=== PATIENT | female | born 1975 | race Caucasian/White ===

== ENCOUNTER 2016-12-13 09:30 | Outpatient (CLI) | payer OTHER ==
[~2016-12-13] VITALS: Ht 170.2 cm; Wt 69.4 kg
[~2016-12-13 09:30] MED LIST: ALPR0.25 PO; DOCU-143 PO; HYDR-3729 PO; IBUP-1773 PO
== END 2016-12-13 09:57 ==
LOC: PREOP 09:30
PROVIDERS: ATTEND Internal Medicine
DX: Z01.818 Encounter for other preprocedural examination (principal); R10.32 Left lower quadrant pain

== ENCOUNTER 2016-12-14 07:05 | Day surgery (SDC) | payer OTHER ==
[~2016-12-14] VITALS: Ht 170.2 cm; Wt 69.4 kg
[2016-12-14 07:15] VITALS: BP 110/68
[2016-12-14] MEDS ORDERED: NALOXONE 0.4 MG/ML 1 ML (NARCAN) VIAL IVP PRN (07:15)
[2016-12-14] MEDS ORDERED: 1/2 NS IV SOLUTION 1,000 ML IV PRN (07:15)
[2016-12-14] MEDS ORDERED: LIDOCAINE JELLY 2% (XYLOCAINE) 5 ML TUBE MM PRN (07:15)
[2016-12-14] MEDS ORDERED: FLUMAZENIL (ROMAZICON) 0.1 MG/ML 5 ML VIAL INJ PRN (07:15)
--- NOTE | 2016-12-14 07:49 | Pre-Op Note & Conscious Sedat ---
Pre-Operative Progress Note H&P Reviewed The H&P was reviewed, patient examined and no changes noted. Date H&P Reviewed: December 14, 2016 Time H&P Reviewed: 07:48 Conscious Sedation Pre-Proced ASA Class: 1 Airway Mallampati Classification: ([place] appropriate class) I. II. III, IV Lungs Heart ASA score ASA 1: a normal healthy patient ASA 2: a patient with a mild systemic disease (mid diabetes, controlled hypertension, obesity ASA 3: a patient with a severe systemic disease that limits activity (angina , COPD, prior Myocardial infarction) ASA 4: a patient with an incapacitating disease that is a constant threat to life (CHF, renal failure) ASA 5: a moribund patient not expected to survive 24 hrs. (ruptured aneurysm) ASA 6: a declared brain patient whose organs are being harvested. For emergent operations, add the letter E after the classification Grade 2 Sedation Plan: Analgesia, Amnesia, Plan communicated to team members, Discussed options with patient/fam, Discussed risks with patient/fam Note The patient is an appropriate candidate to undergo the planned procedure, sedation, and anesthesia. The patient immediately re-assessed prior to indication. GREGORY ESCALERA MD December 14, 2016 07:49
[2016-12-14] MEDS ORDERED: LIDOCAINE JELLY 2% (XYLOCAINE) 5 ML TUBE ONE (07:54)
[2016-12-14] MEDS ORDERED: fentaNYL INJECTION 100 MCG/2 ML AMP ONE ×2 (07:55)
[2016-12-14] MEDS ORDERED: MIDAZOLAM 2 MG/2 ML (VERSED) VIAL ONE ×3 (07:55)
[2016-12-14] MEDS: fentaNYL INJECTION 100 MCG/2 ML AMP IVP PRN ×4 (08:02→08:20)
[2016-12-14] MEDS: MIDAZOLAM 2 MG/2 ML (VERSED) VIAL IVP PRN ×3 (08:05→08:15)
[2016-12-14 08:55] VITALS: BP 114/58
[2016-12-14 09:25] VITALS: BP 110/60
[2016-12-14 09:45] VITALS: BP 110/60
--- NOTE | 2016-12-15 09:41 | OPERATIVE REPORT ---
DATE OF SERVICE: COLONOSCOPY INDICATIONS FOR THE PROCEDURE: Left lower quadrant abdominal pain. The patient was placed in the left lateral decubitus position. Prior to undergoing colonoscopy, digital rectal evaluation was performed. Anal sphincterotome was normal with perianal reflexes intact. No abnormalities were noted on digital inspection of the anal canal or distal rectal vault. The colonoscope was then inserted into the rectum and under direct visualization advanced to the cecum. The cecum was identified by identification of the ileocecal valve and the cecal strap. The terminal ileum was intubated and the distal 10 cm of terminal ileum were inspected as well. Careful inspection was made as the colonoscope was withdrawn. FINDINGS: There was no evidence for internal or external hemorrhoids in the rectum. Sigmoid colon, descending colon, transverse colon were unremarkable except for one small diminutive 1 mm polyp versus prominent lymph follicle; it was biopsied and ablated with no subsequent blood loss. Remainder of the transverse colon, ascending colon, cecum and terminal ileum were unremarkable. ASSESSMENT: One questionable diminutive polyp versus lymph follicle was removed via hot forceps from the transverse colon. This was otherwise normal colonoscopy to the cecum. Considering this and negative CT findings, discussed the strong possibility that her pain may be referred from an upper lumbar source. We discussed the fact that this is highly likely benign in etiology considering the length of her symptoms with no other constitutional symptoms and negative CT scanning of the abdomen and pelvis. The patient was reassured by today's findings. I thank you for the referral. Job ID: [id number] DocumentID: [id number] Dictated Date: 12/14/2016 11:51:38 [employer] Date: 12/15/2016 06:42:16 Dictated By: GREGORY ESCALERA MD [facility]
== END 2016-12-14 09:45 | disposition home or self-care (01) ==
LOC: ENDO 07:05
PROVIDERS: ATTEND Internal Medicine
DX: K63.5 Polyp of colon (principal); R10.32 Left lower quadrant pain

== ENCOUNTER → 2022-03-29 | Outpatient (CLI) | payer OTHER ==
--- NOTE | 2022-03-30 09:01 | Diagnostic Imaging Report ---
Indication: Routine screening. No prior mammograms are available for comparison. This is a baseline study. 2-D and 3-D bilateral screening mammography was performed with CAD. CAD is utilized. The current study was also evaluated with a Computer Aided Detection (CAD) system. Both breasts are heterogeneously dense, limiting the sensitivity of mammography. No mass or malignant-appearing microcalcifications are seen. Axillae are unremarkable. IMPRESSION: BI-RADS Category 1 No mammographic features suspicious for malignancy are identified. ACR BI-RADS Category 1: Negative. Result letter will be mailed to the patient. Note: At least 10% of breast cancer is not imaged by mammography. Dictated by: Dictated on workstation # [id number]
== END ==
LOC: RAD 15:13
PROVIDERS: ATTEND Family Medicine
DX: Z12.31 Encounter for screening mammogram for malignant neoplasm of breast (principal)
CPT/HCPCS: 77063; 77067